=== PATIENT | female | born 1940 ===

== ENCOUNTER 2018-06-16 10:32 | Emergency (ER) | payer MEDICAID, MEDICARE ==
[2018-06-16] MEDS ORDERED: Bacitracin 500 Units/gm Oint Foilpak UD TOP ONE (11:37)
--- NOTE | 2018-06-16 11:43 | C.PDOC ---
History Of Present Illness 78 year old female presents to the emergency department with complaints of left great toe pain for the past 1 week. Patient states that she thinks the area is infected. Patient is currently on an antibiotic given to her by PMD for a UTI ( Augmentin). She denies injuries, fever, discharge from the area, sensory changes. Time Seen by Provider: 06/16/18 10:58 Chief Complaint (Nursing): Lower Extremity Problem/Injury History Per: Patient History/Exam Limitations: no limitations Onset/Duration Of Symptoms: Other (1 week) Current Symptoms Are (Timing): Still Present Severity: Mild Past Medical History Reviewed: Historical Data, Nursing Documentation, Vital Signs Vital Signs: Last Vital Signs Temp 98.0 F 06/16/18 12:04 Pulse 62 06/16/18 12:04 Resp 18 06/16/18 12:04 BP 121/61 06/16/18 12:04 Pulse Ox 98 06/16/18 13:05 - Medical History PMH: HTN Surgical History: No Surg Hx Family History: States: No Known Family Hx - Social History Hx Alcohol Use: No Hx Substance Use: No Review Of Systems Constitutional: Negative for: Fever, Chills Musculoskeletal: Positive for: Foot Pain (left great toe) Skin: Negative for: Rash, Other (discharge from left great toe) Neurological: Negative for: Weakness, Numbness Physical Exam - Physical Exam Appears: Well, Non-toxic, No Acute Distress Skin: Warm, Dry, Other (see extremity exam ) Head: Normacephalic Eye(s): bilateral: Normal Inspection Neck: Supple Cardiovascular: Rhythm Regular Respiratory: Normal Breath Sounds, No Rales, No Rhonchi, No Wheezing Extremity: Normal ROM (of the left great toe), Tenderness (tenderness to palpation at the left great toe), Capillary Refill (< 2 sec all digits ), No Deformity, Swelling (mild swelling to the left great toe), Other (small paronychia at the left great toe (along the left border of the nail), left great toe mildly erythematous and TTP) Pulses: Left Dorsalis Pedis: Normal, Right Dorsalis Pedis: Normal Neurological/Psych: Oriented x3, Normal Sensation (of the left foot) Gait: Steady ED Course And Treatment O2 Sat by Pulse Oximetry: 98 (RA) Pulse Ox Interpretation: Normal Progress Note: Patient given PO Motrin, PO Clindamycin. I&D of paronychia done by me, patient tolerated well. Small amount of pus expressed, wound culture obtainted and sent to lab. Bacitracin and dressing applied by ED nurse. Patient given Rxs for Clindamycin and probiotic. She was instructed to follow up with PMD/clinic in 1-2 days, and understands she should return to ED if symptoms worsen. - Incision & Drainage Of Abscess Prep Used: Betadine Procedure: Incised W/Scalpel Blade#: (11), Drained Pus (small amount ), Cultures Obtained And Sent To Lab Disposition Counseled Patient/Family Regarding: Diagnosis, Need For Followup, Rx Given - Disposition Referrals: [facility] [Outside] Disposition: HOME/ ROUTINE Disposition Time: 11:50 Condition: STABLE Additional Instructions: FOLLOW UP WITH YOUR DOCTOR/CLINIC IN 1-2 DAYS USE MEDICATIONS DIRECTED DO NOT TAKE ANTIBIOTIC AT SAME TIME PROBIOTIC RETURN TO EMERGENCY ROOM IF SYMPTOMS WORSEN SEGUIMIENTO CON JIMENEZ MDICO / CLNICA EN 1-2 BATES USE MEDICAMENTOS SEGN LO INDICADO NO JANIE ANTIBITICOS AL MISMO TIEMPO QUE PROBITICOS REGRESE AL ARGELIA DE EMERGENCIA SI LOS SNTOMAS EMPEORAN Prescriptions: Clindamycin [Cleocin] 300 mg PO TID #21 cap Lactobacillus Combination No.4 [Probiotic] 1 each PO DAILY #10 capsule Instructions: Cellulitis (Skin Infection), Adult (DC), Paronychia (DC) Forms: [employer] (Bulgarian) Print Language: JAMAICAN - Clinical Impression Clinical Impression: Cellulitis of left toe, Paronychia of toe of left foot - Scribe Statement The provider has reviewed the documentation as recorded by the Scribe (Dhruv Villeda) Provider Attestation: All medical record entries made by the Scribe were at my direction and personally dictated by me. I have reviewed the chart and agree that the record accurately reflects my personal performance of the history, physical exam, medical decision making, and the department course for this patient. I have also personally directed, reviewed, and agree with the discharge instructions and disposition.
[2018-06-16] MEDS ORDERED: Bacitracin 500 Units/gm Oint Foilpak UD ONE (11:58)
[2018-06-16 12:05] VITALS: BP 121/61; PULSE 62; RESP 18; TEMP 98
[2018-06-16 12:55] VITALS: O2SAT 98
== END 2018-06-16 12:18 | disposition home or self-care (01) ==
LOC: C.ER 10:32
DX: L03.032 Cellulitis of left toe (principal)